=== PATIENT | female | born 2000 | race Caucasian/White ===

== ENCOUNTER 2023-01-29 07:51 | Emergency (ER) | payer MEDICAID, OTHER ==
[~2023-01-29] VITALS: Ht 162 cm; Wt 68.0 kg
[2023-01-29 08:16] LABS: BILIRUBIN,URINE NEGATIVE (NEGATIVE); COLOR,URINE YELLOW; GLUCOSE, URINE (UA) NEGATIVE (NEGATIVE); KETONES,URINE NEGATIVE (NEGATIVE); LEUKOCYTE ESTERASE ,URINE NEGATIVE (NEGATIVE); NITRITE,URINE NEGATIVE (NEGATIVE); PROTEIN,URINE NEGATIVE (NEGATIVE)
[2023-01-29 08:20] LABS: BACTERIA,URINE LARGE /HPF; CLARITY,URINE SLIGHTLY CLOUDY; RBC,URINE 0-2 /HPF; SQUAMOUS EPITHELIAL CELL,UR >50 /HPF
[2023-01-29 08:56] VITALS: BP 136/97
--- NOTE | 2023-01-29 08:58 | ED GU-Female ---
General Chief Complaint: OB > 20 WEEKS Stated Complaint: VAGINAL BLEEDING (6MO PREG) Nursing Triage Note: PT PRESENTS TO ER WITH VAGINAL BLEEDING THAT STARTED 15 MINS [employer]. SHE IS 22 WEEKS GESTATION. THIS IS HER FIRST AND REPORTS SHE HAD AN US ON THE AND THE FETUS WAS HEALTHY. DENIES HAVING ANY PAIN AND HAS NOT HAD INTERCOURSE FOR ABOUT A MONTH. Source: patient, family History of Present Illness Date Seen by Provider: Jan 29, 2023 Time Seen by Provider: 07:54 Initial Comments 22-year-old female that is G1, P0 at approximately 22-5/7 weeks estimated gestational age with estimated delivery of June 01, 2023. She states she had a ultrasound done on January 12 that had shown everything had looked okay. She denies having any pelvic pain or cramping and no abdominal pain. She woke up this morning and when she went to the bathroom she had dark-colored blood in the toilet and when she wiped. She denies having any intercourse or anything inserted in the vagina for almost a month. She follows with OB care in [place] as she works in the [employer]. She denies having nausea, vomiting, fever, chills, pain with urination, blood in her stools. Timing/Duration: just prior to arrival Activities at Onset: sleep Prior Genitourinary Problems: none Sexual Graham History: less than 2 months ago, single partner Modifying Factors: Worsens With Urinating (Noticed the dark red blood when she went to urinate. There is no pelvic cramping or pain. No pain with urination.) Associated Symptoms: No abdominal pain, No diaphoresis, No dysuria, No fever/chills, No loss of bladder control, No lower back pain, No lumps, No mass, No nausea/vomiting, No nocturia, No polyuria, No swelling, No syncope, No urinary frequency Allergies and Home Medications Allergies Coded Allergies: Penicillins (Verified Allergy, Unknown, 01/29/23) Patient Home Medication List Home Medication List Reviewed: Yes Review of Systems Review of Systems Constitutional: No chills, No dizziness, No fever EENTM: no symptoms reported Respiratory: no symptoms reported Cardiovascular: no symptoms reported Gastrointestinal: no symptoms reported Genitourinary: see HPI; denies burning, denies discharge, denies dysuria, denies frequency, denies pain : Yes Expected Date of Delivery: Jun 01, 2023 Musculoskeletal: no symptoms reported Skin: no symptoms reported Psychiatric/Neurological: Anxiety Past Ggwltms-Skdacn-Swmkmx Hx Patient Social History Tobacco Use?: No Use of E-Cig and/or Vaping dev: No Substance use?: No Alcohol Use?: No Pt feels they are or have been: No Past Medical History Surgeries: No Expected Date of Delivery: Jun 01, 2023 Last Menstrual Period: Aug 25, 2022 Physical Exam Vital Signs Vital Signs - First Documented 01/29/23 07:55 Temp 36.1 Pulse 128 Resp 16 B/P (MAP) 136/97 (110) Pulse Ox 100 O2 Delivery Room Air Capillary Refill : Less Than 3 Seconds Height, Weight, BMI Height: '" Weight: lbs. oz. kg; 25.00 BMI Method: General Appearance: WD/WN, other (Patient is anxious and worried about blood seen this morning as she is and worried about the .) HEENT: PERRL/EOMI, pharynx normal Neck: non-tender, full range of motion, supple, normal inspection Cardiovascular: normal peripheral pulses, tachycardia Respiratory: chest non-tender, lungs clear, normal breath sounds, no respiratory distress, no accessory muscle use Gastrointestinal: normal bowel sounds, non tender, soft, no pulsatile mass Pelvic: normal external exam, no cerv. motion tender; No tender w/ cervical motion, No vaginal bleeding (No active or bright red bleeding but there is pooling of dark-colored blood in the vaginal vault. The os appeared thick and long and did not appear to be open or thinning) Extremities: normal range of motion, non-tender, normal capillary refill Neurologic/Psychiatric: alert, oriented x 3 Skin: normal color, warm/dry Progress/Results/Core Measures Suspected Sepsis SIRS Temperature: Pulse: 128 Respiratory Rate: 16 Blood Pressure 136 /97 Mean: 110 Results/Orders Lab Results Laboratory Tests Test 01/29/23 08:05 Range/Units Urine Color YELLOW Urine Clarity SLIGHTLY CLOUDY Urine pH 7.0 5-9 Urine Specific [employer] 1.015 L 1.016-1.022 Urine Protein NEGATIVE NEGATIVE Urine Glucose (UA) NEGATIVE NEGATIVE Urine Ketones NEGATIVE NEGATIVE Urine Nitrite NEGATIVE NEGATIVE Urine Bilirubin NEGATIVE NEGATIVE Urine Urobilinogen 0.2 < = 1.0 MG/DL Urine Leukocyte Esterase NEGATIVE NEGATIVE Urine RBC (Auto) 3+ H NEGATIVE Urine RBC 0-2 /HPF Urine WBC 10-25 H /HPF Urine Squamous Epithelial Cells >50 H /HPF Urine Crystals NONE /LPF Urine Bacteria LARGE H /HPF Urine Casts NONE /LPF Urine Mucus NEGATIVE /LPF Urine Culture Indicated NO My Orders Orders - SEVERIANO PATRICK MD Ua Culture If Indicated (01/29/23 08:04) Heart Tones (01/29/23 08:04) Vital Signs/I&O 01/29/23 01/29/23 07:55 08:56 Temp 36.1 36.1 Pulse 128 128 Resp 16 16 B/P (MAP) 136/97 (110) 136/97 Pulse Ox 100 100 O2 Delivery Room Air Room Air Capillary Refill : Less Than 3 Seconds Blood Pressure Mean: 110 Progress Note : Progress Note Potential life threatening diagnosis of placenta previa, placental abruption, threatened miscarriage, friable cervix, vaginal bleeding with . Obtain heart tones to help evaluate the . These were in the 150s and regular and found easily. She was not having any pain with palpation of the uterus or pelvis. Patient was reassured and did start crying as she heard the baby's heartbeat because she was worried that there was a problem with the pregn crispin. Again she relates that she had a normal ultrasound on January 12 with her doctor. Her doctor is out of [place] as she works in the [facility] [employer] [facility]. She has not had any complications or problems with this . She is unknown for her Rh blood status. She denies having intercourse or inserting anything in the vagina in the last 24 hours that might have contributed to bleeding. She notes that she has an appointment for for routine follow up with her OB. She initially wanted to go home and rest and take it easy and follow up with her OB but I asked her to let me check with the conveyor worker [employer] doctor about possible evaluation in [place] at Labor and Delivery and possible ultrasound to check for placenta previa or abruption. [id number] Padgett, the conveyor worker president [employer] doctor for [facility]. He was also reassured that the heart tones were normal in the 150s and that she was not having pain. He requested a quick speculum exam to look for her bleeding and see if she was actively bleeding, if there was an open cervix or could see any products of conception on direct exam with speculum. 0825 after performing a speculum exam and finding that she had some old dark looking blood in the vaginal vault but no bright red or active bleeding and the cervix appeared to be long and thick and was not thinning or opening I called Dr. Padgett back to update him. He again was reassured that she was not having pain or bright red blood and the os appeared closed. He advised to review options with the patient of going to [place] where she could be offered a 23-hour observation stay to be watched to see if she had development of heavier bleeding or pelvic pain or cramping. Another option would be going home and resting continue to avoid anything inserted in the vagina. Calling her regular OB doctor to try and move up the appointment to Monday or Monday. Especially if she required RhoGAM it would be best to get her seen within the next day or 2 to administer that. This would be with the strict return precautions of being seen immediately if she was having heavier bleeding, bright red blood, pelvic pain or cramping, abdominal pain. If these are happening then she would need to be evaluated immediately to look for other reasons of the bleeding and see if there is anything that could be done to help stop that. He advised that the ultrasound this weekend would not change her current management and since she was still under 24 weeks she was still previable for her . Alternatively she could go directly to and go where her OB doctor practices to be seen and possibly observed there. I advised him that I would call him back if she chose to come to [place] for observation stay. After reviewing those options with her she was comfortable going home but did want me to discuss it with her father as well so I had him come back to the room and reviewed the same information with him. They again were comfortable with going home and resting and returning or being seen as soon as possible for additional symptoms. Her Urinalysis had shown 3+ RBC and skin cells but no Nit, LE, WBC to indicate an infection. Patient given information for the Labor and Delivery department in [facility] if she had further questions or concerns and could not reach her OB or the conveyor worker doctor for her OB. Departure Impression Primary Impression: Vaginal bleeding in patient after first trimester Disposition: 01 HOME, SELF-CARE Condition: Stable Departure-Patient Inst. Decision time for Depature: 08:53 Referrals: NO,LOCAL PHYSICIAN (PCP/Family) Primary Care Physician Patient Instructions: Vaginal Bleeding in Late ED Add. Discharge Instructions: You can go home and rest today. Avoid strenuous activity and do not insert anything in your vagina (so no sex, tampons or douches) Call your OB doctor's office so they know about today and see if they can move up your appointment to be seen Monday or Monday. If you are RH negative for your blood type they will want to give you a shot called Rhogam to help prevent your body from making antibodies to the baby's blood. IF you have bright red blood, pelvic cramping or abdominal pain then you MUST be seen right away to look further into where the bleeding is coming from and what might be done to help get the bleeding to stop. Stay well hydrated and just try to rest and take it easy until you can be seen by your OB doctor. If you have further questions and are not able to reach your doctor or the conveyor worker doctor for her then you could also try calling Labor and Delivery in [place] at [phone] All discharge instructions reviewed with patient and/or family. Voiced understanding. Work/School Note: Work Release Form Date Seen in the Emergency Department: Jan 29, 2023 Return to Work: Jan 31, 2023 Restrictions: No Restrictions SEVERIANO PATRICK MD Jan 29, 2023 08:58
== END 2023-01-29 08:59 | disposition home or self-care (01) ==
LOC: ER FS 07:53
DX: O20.9 Hemorrhage in early pregnancy, unspecified (principal); Z3A.22 22 weeks gestation of pregnancy; Z28.310 Unvaccinated for COVID-19
CPT/HCPCS: 81000